=== PATIENT | female | born 1950 | race Caucasian/White ===

== ENCOUNTER → 2018-08-26 09:06 | Outpatient (CLI) | payer MEDICARE, OTHER, SELFPAY ==
--- NOTE | 2018-08-26 | DI.US.S_ITS ---
PROCEDURE: US ABDOMEN COMPLETE INDICATIONS: EPIGASTRIC PAIN TECHNIQUE: Real-time scanning was performed of the abdominal and retroperitoneal organs, with image documentation. COMPARISON: [facility], CT, CHEST/ABD/PEL WITH CONTRAST, 02/04/2017, 8:39. FINDINGS: Liver: Liver is normal in size and homogeneous in echotexture. There are 2 well-circumscribed hyperechoic liver masses present the largest measuring up to 1.1 cm and the smaller 7 mm. Gallbladder: No gallstones identified. Normal gallbladder wall. No pericholecystic fluid. Negative sonographic Burton sign. Biliary ducts: Intrahepatic bile ducts are non-dilated. Extrahepatic bile duct caliber measures 6.0 mm. Normal is 6-7 mm or less in diameter, or 10 mm or less post-cholecystectomy. Pancreas: Visualized portions of the pancreas are sonographically normal. Spleen: Spleen is normal in size and homogeneous in echotexture. Kidneys: Kidneys are normal in size and echotexture. Right kidney measures 10.3 cm long; left kidney measures 10.2 cm long. No hydronephrosis or nephrolithiasis. No solid masses. Aorta: Visualized aorta is normal in caliber at less than 3 cm. Iliacs: Proximal common iliac arteries are normal in caliber at less than 2.5 cm. IVC: Intrahepatic inferior vena cava is patent. Miscellaneous: No free abdominal fluid. IMPRESSION: Probable cavernous hemangiomas present given the sonographic appearance. Recommend sequential follow up sonography at 6, 12 and 24 month intervals for surveillance. No source for epigastric pain identified sonographically. Dictated by: Charly Chavez A Interpreted: Lynda Michaels MD on 08/26/2018 at 10:30 Approved by: Lynda Michaels MD, PhD on 08/26/2018 at 15:11
== END ==
PROVIDERS: PCP Physician Assistant; Visit Provider Physician Assistant
DX: R10.13 Epigastric pain (principal)
CPT/HCPCS: 76700

== ENCOUNTER 2018-10-05 07:48 | Day surgery (SDC) | payer MEDICARE, OTHER, SELFPAY ==
--- NOTE | 2018-10-05 | PATH_ITS ---
[facility] Accession Number: [id number] . 01 Material submitted: . PART A: SMALL BOWEL PART B: STOMACH BIOPSY PART C: RANDOM COLON . 01 Clinical history: . A: SMALL BOWERL BIOPSY FOR CELIAC DISEASE B: STOMACH BIOPSY FOR H. PYLORI . 02 Diagnosis: A. Small Bowel, Biopsy: Small bowel mucosa with no diagnostic abnormality. Negative for active inflammation, features of sprue, dysplasia or malignancy. . B. Stomach, Biopsy: Gastric antral and body mucosa with no diagnostic abnormality. No evidence of Helicobacter organisms on H/E stain. Negative for intestinal metaplasia, dysplasia or malignancy. . C. Random Colon, Biopsies: Colonic mucosa with no diagnostic abnormality. Negative for active or microscopic colitis. Negative for granulomata, dysplasia or malignancy. [facility]/10/06/2018 . 02 Electronically signed: . Eulalio West MD, PhD, Pathologist NPI- [id number] . 01 Gross description: . Received three formalin-filled containers, each labeled with the patient's name: . A. In a container labeled small bowel, the specimen consists of a 0.2 cm portion of tissue, entirely submitted in cassette A. B. In a container labeled stomach, the specimen consists of two less than 0.1 cm to 0.3 cm portions of tissue, entirely submitted in cassette B. C. In a container labeled random colon, the specimen consists of four 0.1-0.2 cm portions of tissue, entirely submitted in cassette C. ([id number]) /FRR . 02 Pathologist provided ICD-10: R10.13, R19.4 . 02 CPT . 020595, [id number], [id number] Specimen Comment: A duplicate report has been generated due to demographic updates. Performed at: 01 [facility] [address] [place] [address], [place], [place] [id number] MD Miguel Heard MD Phone: [phone] [facility]formed at: [facility] [address] [place], [place] [id number] MD Jenniffer Warner MD Phone: [phone]
[2018-10-05 08:13] VITALS: BP 156/95; PULSE 72; RESP 16; TEMP 36.4; O2SAT 100; BMI 21.6
[2018-10-05] MEDS: SODIUM CHLORIDE 0.9% 1,000 ML 100 ML IV ×2 (08:27→10:33)
--- NOTE | 2018-10-05 08:43 | PM.HP.1 ---
History of Present Illness Date Patient Seen: 10/05/18 Time Patient Seen: 08:43 Chief complaint: colonoscopy egd [phone] Narrative: [facility], diarrhea and abdominal pain Patient History Family & Social History Social History: household members spouse Meds Home Medications Medication Instructions Recorded Confirmed Type VITAMIN D (Vitamin D3) 1,000 unit PO QDAY #0 08/04/16 History ibuprofen 400 mg PO #0 08/04/16 History [COENZYME 10] QDAY #0 04/30/17 History [DHEA] #0 04/30/17 History [MORINGA OLEIFREA] #0 04/30/17 History [Relief Factor] DAILY #0 04/30/17 History [WOBENZYM ] #0 04/30/17 History [ashwaganda] DAILY #0 04/30/17 History selenium DAILY #0 04/30/17 History levothyroxine [Synthroid] 88 mcg PO DAILY 10/05/18 10/05/18 History Allergies Allergy/AdvReac Type Severity Reaction Status Date / Time erythromycin base Allergy Mild n/v Verified 10/05/18 08:11 hydrocodone Allergy Mild n/v Verified 10/05/18 08:11 salicylates [salicylate] Allergy Mild Rash Verified 10/05/18 08:11 pegfilgrastim [From NEULASTA] AdvReac Mild EXTREME Verified 10/05/18 08:11 BONE PAIN Exam Vital Signs (past 8 hours): - 10/05/18 08:13 Temperature 97.5 F L Pulse Rate 72 Respiratory Rate 16 Blood Pressure 156/95 H Pulse Oximetry 100 Oxygen Delivery Method Room Air
--- NOTE | 2018-10-05 09:30 | PM.HP.1 ---
History of Present Illness Chief complaint: colonoscopy egd [phone] Narrative: [place], diarrhea and abdominal pain Patient History Family & Social History Social History: household members spouse Meds Home Medications Medication Instructions Recorded Confirmed Type VITAMIN D (Vitamin D3) 1,000 unit PO QDAY #0 08/04/16 History ibuprofen 400 mg PO #0 08/04/16 History [COENZYME 10] QDAY #0 04/30/17 History [DHEA] #0 04/30/17 History [MORINGA OLEIFREA] #0 04/30/17 History [Relief Factor] DAILY #0 04/30/17 History [WOBENZYM ] #0 04/30/17 History [ashwaganda] DAILY #0 04/30/17 History selenium DAILY #0 04/30/17 History levothyroxine [Synthroid] 88 mcg PO DAILY 10/05/18 10/05/18 History Allergies Allergy/AdvReac Type Severity Reaction Status Date / Time erythromycin base Allergy Mild n/v Verified 10/05/18 08:11 hydrocodone Allergy Mild n/v Verified 10/05/18 08:11 salicylates [salicylate] Allergy Mild Rash Verified 10/05/18 08:11 pegfilgrastim [From NEULASTA] AdvReac Mild EXTREME Verified 10/05/18 08:11 BONE PAIN Exam Vital Signs (past 8 hours): - 10/05/18 08:13 Temperature 97.5 F L Pulse Rate 72 Respiratory Rate 16 Blood Pressure 156/95 H Pulse Oximetry 100 Oxygen Delivery Method Room Air Narrative Exam Narrative: Oropharynx free of lesions Chest clear to auscultation percussion Cardiac exam reveals no S3 or murmur Assessment & Plan Plan: Assessment/Plan Narrative: GE reflux abdominal pain and change in bowel movements primarily with diarrhea rule out underlying colitis rule out ulcer disease rule out GERD with esophagitis. Perform EGD and colonoscopy. Risks benefits and alternatives have been explained.
[2018-10-05] MEDS: MIDAZOLAM 5 MG/5 ML VIAL IV (09:33)
[2018-10-05] MEDS: fentaNYL 250 MCG/5 ML INJ IV (09:34)
--- NOTE | 2018-10-05 09:44 | P.OP.ENDO_ITS ---
Operative Date/Time/Diagnoses Date of procedure: 10/05/18 Time of procedure: 09:42 Pre-op diagnosis: See indication and findings Procedure & Clinicians Study performed: EGD and colonoscopy Same procedure as scheduled: Yes Indications: GE reflux, abdominal pain, change in bowel habits with diarrhea predominance Surgeon: Heather Nur Procedure Notes Procedure in detail: After informed consent was obtained the patient was placed in the left lateral decubitus position. The video upper scope was placed into the oropharynx and with the patient swallowed into the esophagus. The esophagus , stomach, duodenum were carefully examined. On withdrawal retroflexed view the GE junction was performed. The scope was removed. The patient tolerated the procedure well. At this point the patient was turned and the colonoscope was substituted. It was introduced into the rectum and slowly advanced to the cecum. Preparation was good. On slow withdrawal mucosa was carefully examined. Scope was removed. The patient tolerated procedure well. Blood loss none Complications none Sedation fentanyl 200 mcg Versed 11 mg IV titration Total sedation time 38 min Findings EGD 1. Normal esophagus 2. Streaky gastric erythema in the antrum biopsies taken to rule out Helicobacter 3. Normal duodenal bulb and sweep biopsies taken to rule out celiac Colonoscopy 1. Normal colonoscopy to cecum though quite tortuous. Biopsies taken to rule out microscopic colitis 2. Moderate internal hemorrhoid. Will await biopsies and discussed over the telephone
[2018-10-05 10:12] VITALS: BP 118/75; PULSE 63; RESP 17; TEMP 36.7; O2SAT 100
[2018-10-05 10:17] VITALS: BP 111/69; PULSE 60; RESP 12; O2SAT 97
[2018-10-05 10:22] VITALS: BP 125/87; PULSE 70; RESP 18; O2SAT 99
[2018-10-05 10:28] VITALS: BP 125/83; PULSE 69; RESP 12; TEMP 36.9; O2SAT 100
[2018-10-05 11:05] VITALS: BP 146/75; PULSE 78; RESP 16; TEMP 36.7; O2SAT 97
== END 2018-10-05 11:14 | disposition home or self-care (01) ==
PROVIDERS: PCP Physician Assistant; Visit Provider Internal Medicine Gastroenterology
PROC: 0DJ08ZZ Inspection of Upper Intestinal Tract, Via Natural or Artificial Opening Endoscopic (ICD-10-PCS; CPT 43235; principal; 2018-10-05 09:00)
PROC: 0DJD8ZZ Inspection of Lower Intestinal Tract, Via Natural or Artificial Opening Endoscopic (ICD-10-PCS; CPT 45378; 2018-10-05 09:00)
DX: R19.7 Diarrhea, unspecified (principal); R10.9 Unspecified abdominal pain; K21.9 Gastro-esophageal reflux disease without esophagitis; E03.9 Hypothyroidism, unspecified; M79.7 Fibromyalgia; R19.4 Change in bowel habit; K64.8 Other hemorrhoids
CPT/HCPCS: 45380; 43239; 88305; J2250; J3010

== ENCOUNTER → 2018-10-10 14:07 | Outpatient (CLI) | payer MEDICARE, OTHER, SELFPAY ==
--- NOTE | 2018-10-10 | DI.CT.S_ITS ---
PROCEDURE: CT SINUS SCREEN WO CON INDICATIONS: CHRONIC SINUSITIS TECHNIQUE: Noncontrast 3.0 mm axial images acquired from the frontal sinuses to the mid-sella, with coronal and sagittal reformats. For radiation dose reduction, the following was used: automated exposure control, adjustment of mA and/or kV according to patient size. COMPARISON: None. FINDINGS: Image quality: Excellent. Maxillary Sinuses: No bony remodeling or destruction. Sinuses are clear. Ethmoid Air Cells: No bony remodeling or destruction. Sinuses are clear. Sphenoid Sinuses: No bony remodeling or destruction. Sinuses are clear. Frontal Sinuses: No bony remodeling or destruction. Sinuses are clear. Ostiomeatal Complexes: Ostiomeatal complexes are patent. No Chavo cells. Miscellaneous: Visualized intra-orbital contents are normal. Tiny left ruben bullosa. Bilateral temporomandibular joint degeneration. No nasal septal deviation. IMPRESSION: Clear sinuses. Incidentally noted bilateral temporomandibular joint degeneration. Dictated by: Valerio Clinton M.D. on 10/10/2018 at 15:29 Approved by: Valerio Clinton M.D. on 10/10/2018 at 15:57
== END ==
PROVIDERS: PCP Physician Assistant; Visit Provider Allergy & Immunology
DX: J32.9 Chronic sinusitis, unspecified (principal); J34.3 Hypertrophy of nasal turbinates; M26.69 Other specified disorders of temporomandibular joint
CPT/HCPCS: 70486

== ENCOUNTER → 2019-03-23 13:44 | Outpatient (CLI) | payer MEDICARE, OTHER, SELFPAY ==
--- NOTE | 2019-03-23 | DI.US.S_ITS ---
PROCEDURE: US ABDOMEN COMPLETE INDICATIONS: HEMANGIOMA, DISORDER OF BONE DENSITY TECHNIQUE: Real-time scanning was performed of the abdominal and retroperitoneal organs, with image documentation. COMPARISON: [facility], CT, CHEST/ABD/PEL WITH CONTRAST, 02/04/2017, 8:39. [facility], US, US ABDOMEN COMPLETE, 08/26/2018, 9:37. FINDINGS: Liver: Liver is normal in size and homogeneous in echotexture. 2 focal hyperechoic lesions are visualized within the right hepatic lobe, one of which measures 1.1 x 0.9 x 0.7 cm, and one of which measures 0.9 x 0.5 x 0.6 cm. These are similar in size to the comparison ultrasound dated 08/26/18. Gallbladder: The gallbladder wall measures 3.0 mm in diameter. No stones, sludge, or pericholecystic fluid. Biliary ducts: Intrahepatic bile ducts are non-dilated. Extrahepatic bile duct caliber measures 6 mm. Normal is 6-7 mm or less in diameter, or 10 mm or less post-cholecystectomy. Pancreas: Visualized portions of the pancreas are sonographically normal. Spleen: Spleen is normal in size and homogeneous in echotexture. Kidneys: Kidneys are normal in size and echotexture. Right kidney measures 10.4 cm long; left kidney measures 10.1 cm long. No hydronephrosis or nephrolithiasis. No solid masses. Aorta: Visualized aorta is normal in caliber at less than 3 cm. Iliacs: Proximal common iliac arteries are normal in caliber at less than 2.5 cm. IVC: Intrahepatic inferior vena cava is patent. Miscellaneous: No free abdominal fluid. IMPRESSION: 1. Stable appearance of 2 hyperechoic lesions within the liver most consistent with hepatic hemangiomas. These have demonstrated 7 months of stability. Consider sonographic followup in 12 and 24 months to ensure stability. Dictated by: Veronika Bui M.D. on 03/23/2019 at 15:22 Approved by: Veronika Bui M.D. on 03/23/2019 at 15:26
== END ==
PROVIDERS: PCP Physician Assistant; Visit Provider Physician Assistant
DX: D18.09 Hemangioma of other sites (principal); Z78.0 Asymptomatic menopausal state; M85.9 Disorder of bone density and structure, unspecified; E07.9 Disorder of thyroid, unspecified; Z85.3 Personal history of malignant neoplasm of breast; Z82.62 Family history of osteoporosis
CPT/HCPCS: 76700; 77080

== ENCOUNTER → 2019-04-28 11:40 | Outpatient (CLI) | payer MEDICARE, OTHER, SELFPAY ==
[2019-04-28 13:05] LABS: Free T3, Triiodothyronine Free 3.26 pg/mL (2.77-5.27); Free T4, Direct Thyroxine 1.16 ng/dL (0.78-2.19)
[2019-04-28 13:19] LABS: Thyroid Stimulating Hormone 1.72 uIU/mL (0.47-4.68)
== END ==
PROVIDERS: PCP Physician Assistant; Visit Provider Internal Medicine Endocrinology, Diabetes & Metabolism
DX: E03.9 Hypothyroidism, unspecified (principal)
CPT/HCPCS: 36415; 84439; 84443; 84481

== ENCOUNTER → 2019-12-20 12:38 | Outpatient (CLI) | payer MEDICARE, OTHER, SELFPAY ==
[2019-12-20 14:26] LABS: Free T4, Direct Thyroxine 1.26 ng/dL (0.78-2.19)
[2019-12-20 14:40] LABS: Thyroid Stimulating Hormone 1.06 uIU/mL (0.47-4.68)
== END ==
PROVIDERS: PCP Physician Assistant; Visit Provider Internal Medicine Endocrinology, Diabetes & Metabolism
DX: J18.9 Pneumonia, unspecified organism (principal); E03.9 Hypothyroidism, unspecified
CPT/HCPCS: 36415; 84439; 84443

== ENCOUNTER → 2020-01-23 12:12 | Outpatient (CLI) | payer MEDICARE, OTHER, SELFPAY ==
--- NOTE | 2020-01-23 | DI.RAD.S_ITS ---
PROCEDURE: XR CERVICAL SPINE 2V OR 3V INDICATIONS: Benign paroxysmal positional vertigo, radiculopathy TECHNIQUE: 3 view(s) of the cervical spine were acquired. COMPARISON: None. FINDINGS: Bones: No fractures or dislocations to the T1 level. The lateral masses of C1 appear intact on the odontoid view. No suspicious bony lesions. Straightening of the normal lordotic curvature. Grade 1 anterolisthesis of C4 on C5. Multilevel degenerative endplate sclerosis and spurring. Diffuse facet arthropathy. Moderate narrowing of the C5-C6 and C6-C7 disc spaces. Multilevel ununited anterior endplate osteophytes seen at C4-C5, C5-C6 and C6-C7. Soft tissues: No prevertebral soft tissue swelling. IMPRESSION: Cervical spondylosis most pronounced at C5-C6 and C6-C7 Diffuse facet arthropathy Straightening of the normal lordotic curvature. Grade 1 anterolisthesis of C4 on C5. Dictated by: Valerio Clinton M.D. on 01/23/2020 at 13:31 Approved by: Valerio Clinton M.D. on 01/23/2020 at 13:33
[2020-01-23 13:07] LABS: Add Manual Diff / Slide Review NO; Basophils Absolute Auto 0 /uL (0-100); Basophils Percent Auto 1.3 % (0-2); Eosinophils Absolute Auto 100 /uL (0-450); Eosinophils Percent Auto 3.2 % (2-4); Hemoglobin 14.5 g/dL (12.0-16.0); Lymphocytes Absolute Auto 1000 /uL (1100-4500); Lymphocytes Percent Auto 25.9 % (25-40); Mean Corpuscular HGB Conc 34.5 % (30-36); Mean Corpuscular Hemoglobin 36.9 PG (26-34); Mean Corpuscular Volume 106.8 fL (80-100); Monocytes Absolute Auto 400 /uL (0-900); Monocytes Percent Auto 11.6 % (3-14); Neutrophils Absolute Auto 2200 /uL (1500-7000); Platelet Count 210 X10^3/uL (150-400); Red Blood Cell Count 3.93 X10^6/uL (4.0-5.2); Red Cell Distribution Width 12.4 % (11.6-14.8); White Blood Cell Count 3.8 X10^3/uL (4.5-11.0)
[2020-01-23 13:14] LABS: HEMOLYSIS < 15 (0-50); Iron 124 ug/dL (37-170)
[2020-01-23 13:19] LABS: Alanine Aminotransferase 15 IU/L (<35); Albumin 4.5 g/dL (3.5-5.0); Albumin Globulin Ratio 1.5 (1.0-2.8); Alkaline Phosphatase 48 U/L (38-126); Aspartate Aminotransferase 24 IU/L (14-36); BUN Creatinine Ratio 21.7 (6-22); Blood Urea Nitrogen 13 mg/dL (7-17); Calcium 10.4 mg/dL (8.4-10.2); Carbon Dioxide 26 mmol/L (22-32); Chloride 102 mmol/L (98-107); Cholesterol 285 mg/dL (140-199); Estimated Glomerular Filt Rate > 60.0 mL/min (>60); Globulin 3.1 g/dL (1.7-4.1); Glucose 97 mg/dL (80-110); HDL Cholesterol 101 mg/dL (40-60); HEMOLYSIS < 15 (0-50); LDL Cholesterol Calculated 166 mg/dL (<100); Sodium 138 mmol/L (137-145); Total Protein 7.6 g/dL (6.3-8.2); Triglycerides 92 mg/dL (35-150)
[2020-01-23 13:24] LABS: Potassium 5.9 mmol/L (3.4-5.1)
[2020-01-23 13:25] LABS: Percent Iron Saturation 49 % (15-50); Total Iron Binding Capacity 253 ug/dL (265-497); Transferrin 234 mg/dL (206-381)
[2020-01-23 15:29] LABS: Ferritin 127 ng/mL (11-264)
[2020-01-23 15:55] LABS: Vitamin D 25 Hydroxy (D3) > 126 ng/mL (30.0-100.0)
== END ==
PROVIDERS: PCP Physician Assistant; Referring Provider Physician Assistant; Visit Provider Physician Assistant
DX: H81.11 Benign paroxysmal vertigo, right ear (principal); M54.12 Radiculopathy, cervical region; R42 Dizziness and giddiness; R11.0 Nausea; E55.9 Vitamin D deficiency, unspecified; R53.83 Other fatigue; R79.89 Other specified abnormal findings of blood chemistry; E83.118 Other hemochromatosis; E78.2 Mixed hyperlipidemia; E61.1 Iron deficiency
CPT/HCPCS: 36415; 72040; 80053; 80061; 81256; 82306; 82728; 83540; 83550; 85025

== ENCOUNTER → 2020-01-30 10:31 | Outpatient (CLI) | payer MEDICARE, OTHER, SELFPAY ==
[2020-01-30 12:17] LABS: Free T4, Direct Thyroxine 1.34 ng/dL (0.78-2.19)
[2020-01-30 12:31] LABS: Thyroid Stimulating Hormone 0.39 uIU/mL (0.47-4.68)
== END ==
PROVIDERS: PCP Physician Assistant; Referring Provider Internal Medicine Endocrinology, Diabetes & Metabolism; Visit Provider Internal Medicine Endocrinology, Diabetes & Metabolism
DX: E03.9 Hypothyroidism, unspecified (principal)
CPT/HCPCS: 36415; 84439; 84443

== ENCOUNTER → 2020-04-26 10:57 | Outpatient (CLI) | payer MEDICARE, OTHER, SELFPAY ==
--- NOTE | 2020-04-26 | DI.US.S_ITS ---
PROCEDURE: US ABDOMEN COMPLETE INDICATIONS: HEMANGIOMA TECHNIQUE: Real-time scanning was performed of the abdominal and retroperitoneal organs, with image documentation. COMPARISON: [facility], US, US ABDOMEN COMPLETE, 08/26/2018, 9:37. [facility], US, US ABDOMEN COMPLETE, 03/23/2019, 13:59. FINDINGS: Liver: Liver is normal in size and homogeneous in echotexture. 2 presumed hemangiomas within the right lobe liver are unchanged, largest measuring up to 11 mm. Gallbladder: No gallstones identified. Normal gallbladder wall. No pericholecystic fluid. Negative sonographic Burton sign. Biliary ducts: Intrahepatic bile ducts are non-dilated. Extrahepatic bile duct caliber measures 6.0 mm. Normal is 6-7 mm or less in diameter, or 10 mm or less post-cholecystectomy. Pancreas: Visualized portions of the pancreas are sonographically normal. Spleen: Spleen is normal in size and homogeneous in echotexture. Kidneys: Kidneys are normal in size and echotexture. Right kidney measures 10.5 cm long; left kidney measures 9.9 cm long. No hydronephrosis or nephrolithiasis. No solid masses. Aorta: Visualized aorta is normal in caliber at less than 3 cm. Iliacs: Proximal common iliac arteries are normal in caliber at less than 2.5 cm. IVC: Intrahepatic inferior vena cava is patent. Miscellaneous: No free abdominal fluid. IMPRESSION: 1. Presumed 2 hemangiomas within the right hepatic lobe appear stable. Continued sonographic surveillance for a full 2 year period is warranted to document temporal stability. Dictated by: Charly Chavez Garima Interpreted: Arsh Tolbert MD on 04/26/2020 at 11:52 Approved by: Arsh Tolbert M.D. on 04/26/2020 at 18:19
== END ==
PROVIDERS: PCP Physician Assistant; Referring Provider Physician Assistant; Visit Provider Physician Assistant
DX: D18.03 Hemangioma of intra-abdominal structures (principal)
CPT/HCPCS: 76700

== ENCOUNTER → 2020-09-25 11:38 | Outpatient (CLI) | payer MEDICARE, OTHER, SELFPAY ==
[2020-09-25 13:26] LABS: Free T4, Direct Thyroxine 1.08 ng/dL (0.78-2.19)
[2020-09-25 13:40] LABS: Thyroid Stimulating Hormone 1.88 uIU/mL (0.47-4.68)
== END ==
PROVIDERS: PCP Physician Assistant; Referring Provider Internal Medicine Endocrinology, Diabetes & Metabolism; Visit Provider Internal Medicine Endocrinology, Diabetes & Metabolism
DX: E03.9 Hypothyroidism, unspecified (principal)
CPT/HCPCS: 36415; 84439; 84443

== ENCOUNTER → 2021-01-27 19:13 | Outpatient (ROUT) | payer MEDICARE, OTHER, SELFPAY ==
[2021-01-27 19:44] LABS: Alanine Aminotransferase 18 IU/L (<35); Albumin 4.5 g/dL (3.5-5.0); Albumin Globulin Ratio 1.6 (1.0-2.8); Alkaline Phosphatase 49 U/L (38-126); Aspartate Aminotransferase 33 IU/L (14-36); BUN Creatinine Ratio 37.1 (6-22); Bilirubin Total 0.7 mg/dL (0.2-1.3); Blood Urea Nitrogen 23 mg/dL (7-17); Calcium 9.7 mg/dL (8.4-10.2); Carbon Dioxide 29 mmol/L (22-32); Chloride 98 mmol/L (98-107); Cholesterol 245 mg/dL (140-199); Estimated Glomerular Filt Rate > 60.0 mL/min (>60); Globulin 2.9 g/dL (1.7-4.1); Glucose 90 mg/dL (80-110); HDL Cholesterol 92 mg/dL (40-60); HEMOLYSIS < 15 (0-50); LDL Cholesterol Calculated 131 mg/dL (<100); Sodium 134 mmol/L (137-145); Total Protein 7.4 g/dL (6.3-8.2); Triglycerides 112 mg/dL (35-150)
[2021-01-27 19:45] LABS: HEMOLYSIS < 15 (0-50); Iron 110 ug/dL (37-170)
[2021-01-27 19:53] LABS: Add Manual Diff / Slide Review NO; Basophils Absolute Auto 100 /uL (0-100); Basophils Percent Auto 1.2 % (0-2); Eosinophils Absolute Auto 100 /uL (0-450); Eosinophils Percent Auto 1.9 % (2-4); Lymphocytes Absolute Auto 1100 /uL (1100-4500); Lymphocytes Percent Auto 26.3 % (25-40); Mean Corpuscular HGB Conc 34.1 % (30-36); Mean Corpuscular Hemoglobin 37.5 PG (26-34); Mean Corpuscular Volume 109.8 fL (80-100); Monocytes Absolute Auto 400 /uL (0-900); Monocytes Percent Auto 9.6 % (3-14); Neutrophils Absolute Auto 2500 /uL (1500-7000); Platelet Count 201 X10^3/uL (150-400); Red Blood Cell Count 3.74 X10^6/uL (4.0-5.2); Red Cell Distribution Width 13.1 % (11.6-14.8); White Blood Cell Count 4.1 X10^3/uL (4.5-11.0)
[2021-01-27 20:00] LABS: Percent Iron Saturation 41 % (15-50); Total Iron Binding Capacity 268 ug/dL (265-497); Transferrin 201 mg/dL (206-381); Vitamin D 25 Hydroxy (D3) 107 ng/mL (30.0-100.0)
[2021-01-27 20:15] LABS: Cancer Antigen 125 10.4 U/mL (0-35); TSH w/ Reflex to FT4 2.61 uIU/mL (0.47-4.68)
[2021-01-27 20:19] LABS: Ferritin 108 ng/mL (11-264)
== END ==
PROVIDERS: PCP Physician Assistant; Visit Provider Physician Assistant
DX: R31.9 Hematuria, unspecified (principal); E03.9 Hypothyroidism, unspecified; E78.2 Mixed hyperlipidemia; E55.9 Vitamin D deficiency, unspecified; R53.83 Other fatigue; R10.84 Generalized abdominal pain; R14.0 Abdominal distension (gaseous)
CPT/HCPCS: 80053; 80061; 82306; 82728; 83540; 83550; 84443; 85025; 86304; 87086

== ENCOUNTER → 2022-03-11 13:30 | Outpatient (CLI) | payer MEDICARE, OTHER, SELFPAY ==
[2022-03-11 14:57] LABS: Free T4, Direct Thyroxine 1.42 ng/dL (0.78-2.19)
[2022-03-11 15:11] LABS: Thyroid Stimulating Hormone 0.588 uIU/mL (0.47-4.68)
== END ==
PROVIDERS: PCP Physician Assistant; Referring Provider Internal Medicine Endocrinology, Diabetes & Metabolism; Visit Provider Internal Medicine Endocrinology, Diabetes & Metabolism
DX: E03.9 Hypothyroidism, unspecified (principal)
CPT/HCPCS: 36415; 84439; 84443

== ENCOUNTER → 2022-04-13 11:11 | Outpatient (CLI) | payer MEDICARE, OTHER, SELFPAY ==
--- NOTE | 2022-04-13 | DI.RAD.S_ITS ---
PROCEDURE: XR KNEE RT 3V INDICATIONS: Other chronic pain TECHNIQUE: 3 views of the knee were acquired. COMPARISON: None. FINDINGS: Bones: No fractures or dislocations. No suspicious bony lesions. Moderate medial and lateral compartmental joint space narrowing with stippled meniscal calcification noted. Soft tissues: No joint effusion. No suspicious soft tissue calcifications. IMPRESSION: Bicompartmental osteoarthritis and chondrocalcinosis Approved by: Marcus Robison M.D. on 04/13/2022 at 12:04
== END ==
PROVIDERS: PCP Physician Assistant; Referring Provider Physician Assistant; Visit Provider Physician Assistant
DX: M17.11 Unilateral primary osteoarthritis, right knee (principal); M11.261 Other chondrocalcinosis, right knee; M25.561 Pain in right knee; G89.29 Other chronic pain
CPT/HCPCS: 73562

== ENCOUNTER → 2023-02-19 12:41 | Outpatient (CLI) | payer MEDICARE, OTHER, SELFPAY ==
[2023-02-19 15:57] LABS: TSH w/ Reflex to FT4 0.81 uIU/mL (0.47-4.68)
== END ==
PROVIDERS: PCP Physician Assistant; Referring Provider Internal Medicine Endocrinology, Diabetes & Metabolism; Visit Provider Internal Medicine Endocrinology, Diabetes & Metabolism
DX: E03.9 Hypothyroidism, unspecified (principal)
CPT/HCPCS: 36415; 84443

== ENCOUNTER → 2024-03-24 13:21 | Outpatient (CLI) | payer MEDICARE, OTHER, SELFPAY ==
[2024-03-24 15:03] LABS: Free T4, Direct Thyroxine 1.32 ng/dL (0.78-2.19)
== END ==
PROVIDERS: PCP Nurse Practitioner Family; Referring Provider Internal Medicine Endocrinology, Diabetes & Metabolism; Visit Provider Internal Medicine Endocrinology, Diabetes & Metabolism
DX: E03.9 Hypothyroidism, unspecified (principal)
CPT/HCPCS: 36415; 84439; 84443

== ENCOUNTER → 2024-04-10 12:47 | Outpatient (CLI) | payer MEDICARE, OTHER, SELFPAY ==
[2024-04-10 13:33] LABS: Alanine Aminotransferase 15 IU/L (<35); Albumin 4.1 g/dL (3.5-5.0); Albumin Globulin Ratio 1.5 (1.0-2.8); Alkaline Phosphatase 48 U/L (38-126); Aspartate Aminotransferase 34 IU/L (14-36); BUN Creatinine Ratio 21.2 (6-22); Blood Urea Nitrogen 14 mg/dL (7-17); Calcium 8.9 mg/dL (8.4-10.2); Carbon Dioxide 29 mmol/L (22-32); Chloride 104 mmol/L (98-107); Estimated Glomerular Filt Rate > 60 mL/min (>60); Globulin 2.8 g/dL (1.7-4.1); Glucose 101 mg/dL (80-110); HEMOLYSIS < 15 (0-50); Potassium 4.2 mmol/L (3.4-5.1); Sodium 136 mmol/L (137-145); Total Protein 6.9 g/dL (6.3-8.2)
[2024-04-10 15:42] LABS: Vitamin D 25 Hydroxy (D3) > 126 ng/mL (30.0-100.0)
== END ==
PROVIDERS: PCP Nurse Practitioner Family; Referring Provider Nurse Practitioner Family; Visit Provider Nurse Practitioner Family
DX: E83.52 Hypercalcemia (principal); E87.1 Hypo-osmolality and hyponatremia; R53.83 Other fatigue
CPT/HCPCS: 36415; 80053; 82306